=== PATIENT | male | born 1990 | race Asian ===

== ENCOUNTER 2021-02-20 09:09 | Outpatient (CLI) | payer OTHER | END 2021-02-20 09:10 | disposition home or self-care (01) | LOC: BICCT 09:09 | PROVIDERS: ATTEND Internal Medicine Gastroenterology | DX: R10.31 Right lower quadrant pain (principal); R94.5 Abnormal results of liver function studies; K76.0 Fatty (change of) liver, not elsewhere classified; K57.30 Diverticulosis of large intestine without perforation or abscess without bleeding | CPT/HCPCS: 74177 ==